=== PATIENT | female | born 1990 | race Two or more races ===

== ENCOUNTER 2024-07-18 14:25 | Outpatient (CLI) | payer BC, SELFPAY ==
--- NOTE | ~2024-07-18 | US_ITS ---
EXAMINATION: US transvaginal DATE: 07/18/2024 14:59 INDICATION: Abn uterine bleeding,pelvic pain TECHNIQUE: Multiple endovaginal sonographic images of the pelvis were obtained. COMPARISON: None. FINDINGS: Uterus: 7.3 x 3.4 x 3.6 cm. IUD in expected position. Endometrial complex measures 4 mm. Right Ovary: 2.8 x 3.1 x 3.4 cm. Vascular flow is present. 1.8 cm simple cyst versus dominant follicl e Left Ovary: 2.6 x 2.7 x 2.5 cm. Vascular flow is present. There is no free fluid in the pelvis. IMPRESSION: IUD, in good position. Otherwise normal pelvic sonogram findings. Reviewed, dictated and finalized at location K. O TRIMMER
== END 2024-07-18 14:26 | disposition home or self-care (01) ==
LOC: MICIMG 14:26
PROVIDERS: PCP Nurse Practitioner; Visit Provider Nurse Practitioner
DX: N93.8 Other specified abnormal uterine and vaginal bleeding (principal); R10.2 Pelvic and perineal pain; Z97.5 Presence of (intrauterine) contraceptive device
CPT/HCPCS: 76830

== ENCOUNTER 2025-07-05 16:29 | Outpatient (CLI) | payer OTHER, SELFPAY ==
--- NOTE | ~2025-07-05 | US_ITS ---
EXAMINATION: US thyroid DATE: 07/06/2025 08:32 INDICATION: Enlarged thyroid TECHNIQUE: Multiple ultrasound images of the thyroid were obtained. COMPARISON: None. FINDINGS: The right thyroid lobe measures 4.2 x 1.5 x 1.5 cm. The left thyroid lobe measures 4.2 x 1.5 x 1.6 cm. The thyroid is mildly heterogeneous in echotexture throughout with no dominant nodule or mass. Vascularity of the thyroid appears within normal limits. IMPRESSION: Normal size thyroid which is mildly heterogeneous in echotexture but no discrete nodule or mass. Reviewed, dictated and finalized at location A. X [employer] IMPRESSION: Normal size thyroid which is mildly heterogeneous in echotexture bu t no discrete nodule or mass.
== END 2025-07-05 16:30 | disposition home or self-care (01) ==
PROVIDERS: PCP Nurse Practitioner; Visit Provider Nurse Practitioner
DX: E07.9 Disorder of thyroid, unspecified (principal)
CPT/HCPCS: 76536